=== PATIENT | female | born 1965 | race Caucasian/White ===

== ENCOUNTER 2016-10-30 06:48 | Day surgery (SDC) | payer BC ==
[~2016-10-30 06:48] MED LIST: ADVAIR 100-501 EACH PO; ADVAIR 1001 DISK W/D; DULCOLAX STOOL100 M1 PO; IRON1 TA1; IRON325 M3 PO; KLONOPIN1 M1 PO; MIRALAX17 G2 PO; NORCO 5/325 TAB1 TAB PO; PERCOCET 5-3251 EACH PO; PREDNISONE PO; PROAIR HFA8.5 GM IH; PROVENTIL HFA6.7 GM IH; PROVENTIL17 GM; PROZAC20 M3 PO; ZOLOFT50 MG
== END 2016-10-30 10:10 ==
LOC: ENDOS 06:48 → SHSC 06:49 → ENDOS 08:05
PROC: 0DBP8ZX Excision of Rectum, Via Natural or Artificial Opening Endoscopic, Diagnostic (ICD-10-PCS; principal; 2016-10-30)
DX: Z12.11 Encounter for screening for malignant neoplasm of colon (principal); K62.1 Rectal polyp; K64.8 Other hemorrhoids; K57.30 Diverticulosis of large intestine without perforation or abscess without bleeding; M19.90 Unspecified osteoarthritis, unspecified site; J45.909 Unspecified asthma, uncomplicated; G47.30 Sleep apnea, unspecified; F41.9 Anxiety disorder, unspecified; F32.9 Major depressive disorder, single episode, unspecified; Z99.89 Dependence on other enabling machines and devices; Z79.899 Other long term (current) drug therapy; Z98.890 Other specified postprocedural states